=== PATIENT | female | born 1970 | race Caucasian/White ===

== ENCOUNTER → 2017-06-05 | Outpatient (CLI) | payer OTHER ==
[2017-06-05 10:15] LABS: BASO # 0.1 x10^3/uL (0.0-0.2); BASO % 1 % (0-3); EOS % 2 % (0-3); HEMATOCRIT 42.4 % (36.0-47.0); HEMOGLOBIN 14.3 g/dL (12.0-15.5); LYMPH % 25 % (24-48); MEAN CORPUSCULAR HEMOGLOBIN 32 pg (25-35); MEAN CORPUSCULAR HGB CONC 34 g/dL (31-37); MEAN CORPUSCULAR VOLUME 93 fL (79-100); MONO % 7 % (0-9); NEUT % 66 % (31-73); PLATELET COUNT 273 x10^3/uL (140-400); RED BLOOD COUNT 4.55 x10^6/uL (3.50-5.40); RED CELL DISTRIBUTION WIDTH 12.9 % (11.5-14.5); WHITE BLOOD COUNT 8.3 x10^3/uL (4.0-11.0)
[2017-06-05 10:17] LABS: BILIRUBIN,URINE NEGATIVE (NEG); GLUCOSE,URINE NEGATIVE (NEG); NITRITE,URINE NEGATIVE (NEG); PH,URINE 6.5; PROTEIN,URINE NEGATIVE (NEG-TRACE); UROBILINOGEN,URINE 0.2 mg/dL (0.2 mg/dL)
[2017-06-05 10:23] LABS: SQUAMOUS EPITHELIAL CELL,UR MOD /LPF
[2017-06-05 10:24] LABS: BACTERIA,URINE FEW /HPF (0-FEW)
[2017-06-05 10:37] LABS: ALBUMIN 3.8 g/dL (3.4-5.0); CALCIUM 9.3 mg/dL (8.5-10.1); CREATININE 0.7 mg/dL (0.6-1.0); GFR 90.5; POTASSIUM 4.6 mmol/L (3.5-5.1); TOTAL BILIRUBIN 0.5 mg/dL (0.2-1.0); TOTAL PROTEIN 7.5 g/dL (6.4-8.2)
[2017-06-05 10:39] LABS: CHOLESTEROL/HDL RATIO 3.8
[2017-06-05 19:15] LABS: FSH 2.1 mIU/mL (.); LUTEINIZING HORMONE 4.3 mIU/mL (.)
== END | disposition home or self-care (01) ==
LOC: LAB 09:46
PROVIDERS: ATTEND Family Medicine
DX: Z00.01 Encounter for general adult medical examination with abnormal findings (principal); N95.1 Menopausal and female climacteric states
CPT/HCPCS: 36415; 80053; 80061; 81001; 83001; 83002; 84443; 85025

== ENCOUNTER → 2018-11-21 | Outpatient (CLI) | payer OTHER ==
[2018-11-21 08:29] LABS: BASO # 0.1 x10^3/uL (0.0-0.2); BASO % 1 % (0-3); EOS # 0.1 x10^3/uL (0.0-0.7); EOS % 2 % (0-3); HEMATOCRIT 40.1 % (36.0-47.0); HEMOGLOBIN 13.6 g/dL (12.0-15.5); LYMPH # 1.4 x10^3/uL (1.0-4.8); LYMPH % 21 % (24-48); MEAN CORPUSCULAR HEMOGLOBIN 32 pg (25-35); MEAN CORPUSCULAR HGB CONC 34 g/dL (31-37); MEAN CORPUSCULAR VOLUME 93 fL (79-100); MONO # 0.5 x10^3/uL (0.0-1.1); MONO % 7 % (0-9); NEUT # 4.8 x10^3uL (1.8-7.7); NEUT % 70 % (31-73); PLATELET COUNT 298 x10^3/uL (140-400); RED BLOOD COUNT 4.29 x10^6/uL (3.50-5.40); RED CELL DISTRIBUTION WIDTH 13.2 % (11.5-14.5); WHITE BLOOD COUNT 6.9 x10^3/uL (4.0-11.0)
[2018-11-21 08:30] LABS: BILIRUBIN,URINE NEGATIVE (NEG); CLARITY,URINE CLEAR; COLOR,URINE YELLOW; NITRITE,URINE NEGATIVE (NEG); PH,URINE 6.5; PROTEIN,URINE NEGATIVE (NEG-TRACE); UROBILINOGEN,URINE 0.2 mg/dL (0.2 mg/dL)
[2018-11-21 08:37] LABS: SQUAMOUS EPITHELIAL CELL,UR MOD /LPF
[2018-11-21 08:38] LABS: BACTERIA,URINE FEW /HPF (0-FEW)
[2018-11-21 08:57] LABS: ALBUMIN 3.9 g/dL (3.4-5.0); ALBUMIN/GLOBULIN RATIO 1.2 (1.0-1.7); CALCIUM 9.1 mg/dL (8.5-10.1); CREATININE 0.8 mg/dL (0.6-1.0); GFR 77.2; POTASSIUM 3.8 mmol/L (3.5-5.1); TOTAL BILIRUBIN 0.6 mg/dL (0.2-1.0); TOTAL PROTEIN 7.2 g/dL (6.4-8.2)
[2018-11-21 08:58] LABS: CHOLESTEROL/HDL RATIO 4.1
--- NOTE | 2018-11-21 14:04 | RAD ---
DATE: 11/21/2018 EXAM: DIGITAL SCREEN BILAT W/CAD HISTORY: Routine screening COMPARISON: 06/10/2017 This study was interpreted with the benefit of Computerized Aided Detection (CAD). Breast Density: DENSE The breast parenchyma is dense, which could reduce the sensitivity of mammography. Breast parenchyma level density D. FINDINGS: No new or enlarging breast densities are seen. No spiculated mass or architectural distortion is evident. Minimal benign type calcification is present. No suspicious microcalcifications are evident. IMPRESSION: There is no mammographic evidence of malignancy in either breast. BI-RADS CATEGORY: 2 BENIGN FINDING(S) RECOMMENDED FOLLOW-UP: 12M 12 MONTH FOLLOW-UP PQRS compliance statement: Patient information was entered into a reminder system with a target due date for the next mammogram. Mammography is a sensitive method for finding small breast cancers, but it does not detect them all and is not a substitute for careful clinical examination. A negative mammogram does not negate a clinically suspicious finding and should not result in delay in biopsying a clinically suspicious abnormality. "Our facility is accredited by the [employer] Mammography [employer]."
== END | disposition home or self-care (01) ==
LOC: LAB 07:48
PROVIDERS: ATTEND Family Medicine
DX: Z12.31 Encounter for screening mammogram for malignant neoplasm of breast (principal); Z00.00 Encounter for general adult medical examination without abnormal findings; R92.8 Other abnormal and inconclusive findings on diagnostic imaging of breast
CPT/HCPCS: 36415; 77067; 80053; 80061; 81001; 84443; 85025; 87086

== ENCOUNTER → 2019-05-30 | Outpatient (CLI) | payer OTHER ==
--- NOTE | 2019-06-03 08:07 | PATHOLOGY ---
[facility] Accession Number: [id number] . 01 Material submitted: . nail - RIGHT HALLUX NAIL. Modifiers: right, great . 01 Clinical history: . Onychomycosis . 02 Diagnosis: Right hallux nail: - Onychomycosis. (JPM:[facility] 06/02/2019) [facility] 06/02/2019 1353 Local . 02 Comment: A properly controlled PAS stain for yeast/fungi is obtained on the right hallux nail. There are hyphae and spores present supportive of the diagnosis of onychomycosis. (JPM:[facility] 06/02/2019) . Special stain performed: PAS stain for yeast/fungi . 02 Electronically signed: . Vinod Davis MD, Pathologist NPI- [id number] . 01 Gross description: . The specimen is received fresh, labeled "Bebe, Silke, right hallux nail", consist of a semi-lunar hernandez-white firm a peritoneal measuring 1.9 x 0.3 x 0.1 cm. The specimen is entirely submitted in A1 after ELÍAS exposure. ([facility]; 05/30/2019) [facility] 05/30/20198 Local . 02 Pathologist provided ICD-10: B35.1 . 02 CPT . 552203, [id number] Specimen Comment: A courtesy copy of this report has been sent to [phone] Specimen Comment: [phone] Specimen Comment: Report sent to / DR RUFFIN Performed at: 01 [facility] [address], [place], [place] [id number] MD Josh Conley MD Phone: [phone] Performed at: 02 [facility] [address] [place], [place] [id number] MD Vinod Davis MD Phone: [phone]
== END | disposition home or self-care (01) ==
LOC: SPEC 12:14
PROVIDERS: ATTEND Podiatrist Foot & Ankle Surgery
DX: B35.1 Tinea unguium (principal); Z76.89 Persons encountering health services in other specified circumstances
CPT/HCPCS: 87102; 88304; 88312

== ENCOUNTER → 2019-06-27 | Day surgery (SDC) | payer OTHER ==
[~2019-06-27] MED LIST: LIDOCAINE 1%/EPI 1:100,000 20 ML VIAL. INJ ONE; LIDOCAINE 1%/EPI 1:100,000 20 ML VIAL. ONE
--- NOTE | 2019-06-27 12:22 | PDOC4 ---
Operative Note Operative Note Date: 06/27/2019 Preoperative diagnosis: Sebaceous cyst mid back Postoperative diagnosis: Same Surgeon: Damien Procedure: Excision of mass Specimen: Back mass Dictation: Patient is 49-year-old female is complained of enlarging mass on her mid back was inflamed and infected she has been on antibiotics requesting excision of the area. Procedure of excision was explained to the patient detail risk benefits were also discussed including bleeding infection alternatives to this procedure also discussed with patient who seemed to understand gave both verbal and written consent to have the procedure performed. Patient was placed in the prone position and the miners room mid back was prepped and draped usual sterile fashion using ChloraPrep and area around the mass was injected with 1% lidocaine with epinephrine elliptical incision was made with 15 blade scalpel was fully excised and sent for pathology the wound was closed in a single layer running 40 septic and a Monocryl Mastisol Steri-Strips and Telfa dressing were applied. Patient toward procedure well was charged home in stable condition all sponge instrument needle counts listed as correct estimate blood loss less than 5 mL WYATT RODGERS MD Jun 27, 2019 12:22
--- NOTE | 2019-07-01 09:07 | PATHOLOGY ---
[facility] Accession Number: [id number] . 01 Material submitted: . back - SEBACEOUS CYST MID BACK. Modifiers: mid . 01 Clinical history: . Sebaceous cyst . 02 Diagnosis: Skin and subcutaneous tissue, mid back lesion excision: - Abscess containing keratinaceous material and showing chronic inflammation, focal foreign body giant cell reaction, and surrounding fibrosis, consistent with ruptured epidermal inclusion cyst. (JPM:[facility]; 06/30/2019) [facility] 06/30/2019 1545 Local . 02 Comment: There is no evidence of malignancy. (JPM:[facility]; 06/30/2019) . 02 Electronically signed: . Vinod Davis MD, Pathologist NPI- [id number] . 01 Gross description: . Received in formalin labeled "Bebe, Silke, sebaceous cyst, mid-back," is an unoriented ellipse of light roberts skin measuring 2.3 x 0.7 cm with underlying subcutaneous tissue excised to a depth of up to 1.2 cm. The resection margins are inked black. The skin surface displays a lesion that is poorly circumscribed, raised, irregular in contour, roberts, measures approximately 0.9 x 0.7 cm, and abuts the closest peripheral margin. The specimen is serially sectioned into 9 pieces and entirely submitted in cassettes A1-A3 with tips in A3. ([facility]; 06/27/2019) TOB/TOB 06/27/2019 2259 Local . 02 Pathologist provided ICD-10: L72.0 . 02 CPT . 970069 Specimen Comment: A courtesy copy of this report has been sent to [phone] Specimen Comment: [phone] Specimen Comment: Report sent to and Performed at: 01 [facility] [address], [place] [id number] MD Josh Conley MD Phone: [phone] Performed at: 02 [facility] [address] [place], [place] [id number] MD Vinod Davis MD Phone: [phone]
== END ==
LOC: SURG 11:30
PROVIDERS: ATTEND Surgery
DX: L72.3 Sebaceous cyst (principal); L90.5 Scar conditions and fibrosis of skin; L02.212 Cutaneous abscess of back [any part, except buttock and flank]
CPT/HCPCS: 11403; 88304; J3490

== ENCOUNTER 2019-07-31 06:39 | Day surgery (SDC) | payer OTHER ==
[~2019-07-31] VITALS: Ht 154.9 cm; Wt 68.0 kg
[2019-07-31] MEDS ORDERED: ONDANSETRON PF 4 MG/2 ML VIAL. IV PRN (07:00)
[2019-07-31] MEDS ORDERED: PROCHLORPERAZINE 10 MG/2 ML VIAL. IV PRN (07:00)
[2019-07-31] MEDS ORDERED: MORPHINE SULFATE 2 MG/ML VIAL. IV PRN (07:00)
[2019-07-31] MEDS ORDERED: fentaNYL PF VIAL 100 MCG/2 ML VIAL IV PRN ×2 (07:00)
[2019-07-31] MEDS ORDERED: SCOPOLAMINE 1.5MG PATCH. TD ONE (07:00)
[2019-07-31] MEDS ORDERED: IV RINGERS,LACTATED 1000ML 1,000 ML IV SCH (07:00)
[2019-07-31] MEDS ORDERED: HYDROmorphone 2 MG/ML VIAL IV PRN (07:00)
[2019-07-31] MEDS ORDERED: CETI10TA24 PO (07:12)
[2019-07-31] MEDS ORDERED: CYAN100070 PO (07:12)
[2019-07-31] MEDS ORDERED: LEVO75TA5 PO (07:12)
[2019-07-31] MEDS ORDERED: GUAI12003 PO (07:12)
[2019-07-31] MEDS ORDERED: FLUT9.9S NS (07:12)
[2019-07-31] MEDS ORDERED: CLINDAMYCIN 900MG PREMIX 50 ML IV PRN (07:30)
[2019-07-31] MEDS ORDERED: PROPOFOL 20 ML IV ONE (08:02)
[2019-07-31] MEDS ORDERED: KETAMINE HCL IN NACL, ISO-OSM 50 MG/5 ML SYRINGE ONE (08:02)
[2019-07-31] MEDS ORDERED: MIDAZOLAM HCL/PF 2 MG/2 ML VIAL. ONE (08:02)
[2019-07-31] MEDS ORDERED: ONDANSETRON PF 4 MG/2 ML VIAL. ONE (08:03)
[2019-07-31] MEDS ORDERED: FAMOTIDINE 20 MG/2 ML VIAL ONE (08:03)
[2019-07-31] MEDS ORDERED: KETOROLAC 30 MG/ML VIAL. ONE (08:03)
[2019-07-31] MEDS ORDERED: DEXAMETHASONE SOD PHOS 4 MG/ML VIAL ONE ×2 (08:03)
[2019-07-31] MEDS ORDERED: LIDOCAINE 2% PF 5 ML VIAL. ONE (08:03)
[2019-07-31] MEDS ORDERED: diphenhydrAMINE 50 MG/ML VIAL ONE (08:03)
[2019-07-31] MEDS ORDERED: PROPOFOL 100 ML IV ONE (08:04)
--- NOTE | 2019-07-31 09:05 | PDOC ---
BRIEF OPERATIVE NOTE Date: Jul 31, 2019 Pre-Op Diagnosis AUB Post-Op Diagnosis Same Procedure Performed Op [facility] Surgeon Dr. Wyman Anesthesia Type: General Blood Loss 5 ml Specimens Obtained endometrial biopsy Findings heterogenous endometrial cavity Complications none Operative Note see dictation MIGUELINA WYMAN Jr, MD Jul 31, 2019 09:05
--- NOTE | 2019-07-31 09:07 | DISCH ---
DISCHARGE INSTRUCTIONS Condition on Discharge Condition on Discharge: Stable Activity After Discharge Activity Instructions for Disc: Activity as tolerated Lifting Instructions after Dis: No heavy lifting Driving Instructions after Dis: Do not drive today Diet after Discharge Diet after Discharge: Regular Contacting the DRJacky after DC Call your doctor for: Concerns you may have Follow-Up Follow up with: Dr. Wyman in 1 week MIGUELINA WYMAN Jr, MD Jul 31, 2019 09:07
[2019-07-31] MEDS ORDERED: IBUP200T44 PO (09:22)
--- NOTE | 2019-07-31 09:27 | OP ---
DATE OF SURGERY: PREOPERATIVE DIAGNOSIS: Abnormal uterine bleeding. POSTOPERATIVE DIAGNOSIS: Abnormal uterine bleeding. PROCEDURE: Operative hysteroscopy. SURGEON: Froylan Wyman MD. ANESTHESIA: GETA. ESTIMATED BLOOD LOSS: Less than 5 mL. COMPLICATIONS: None. FINDINGS: Heterogeneous endometrial cavity. SUMMARY: A 49-year-old 2, para 2 with abnormal uterine bleeding. She also had endometrial cells on Pap smear. The patient was counseled on risks, benefits and expectations of operative hysteroscopy and voiced clear understanding to proceed. DESCRIPTION OF PROCEDURE: The patient was taken to surgery suite and placed in dorsal lithotomy position. She was prepped with Betadine and draped in sterile fashion. After adequate anesthesia, weighted speculum and curved Thelma placed vaginally. Anterior lip of the cervix grasped with single tooth tenaculum. The weighted speculum and curved Austin were then removed. Cervix was dilated with Hegar dilators up to size 7. The TruClear hysteroscope was positioned. There was heterogeneous endometrial cavity in which the TruClear device was utilized to excise endometrial biopsy portions until the endometrial canal was homogenous. The hysteroscope was removed. Single tooth tenaculum was removed. The patient tolerated the procedure well and was taken to recovery room in stable condition. Sponge and needle count correct x 3. FROYLAN WYMAN MD DR: JULIA/nts JOB#: [id number] / [id number]
[2019-07-31] MEDS ORDERED: IBUPROFEN 400 MG TABLET. PO ONE (09:30)
[2019-07-31] MEDS ORDERED: IBUPROFEN 200 MG TABLET. PO ONE (09:34)
[2019-07-31 10:05] VITALS: BP 139/67
--- NOTE | 2019-08-01 12:06 | PATHOLOGY ---
[facility] Accession Number: [id number] . 01 Material submitted: . endometrium - ENDOMETRIAL BIOPSY . 01 Clinical history: . Abnormal uterine bleeding . 02 Diagnosis: Endometrial biopsy: - Slightly disordered proliferative endometrium. ([facility] 08/01/2019) [facility] 08/01/2019 0927 Local . 02 Comment: There is no evidence of hyperplasia or malignancy. ([facility] 08/01/2019) . 02 Electronically signed: . Vinod Davis MD, Pathologist NPI- [id number] . 01 Gross description: . Received in formalin labeled "Bebe, Silke, endometrial biopsy," is blood-tinged mucoid material containing small fragments of roberts membranous tissue, measuring 1.4 x 0.3 x 0.1 cm in aggregate dimensions. The specimen is filtered and submitted entirely in cassette A1. ([facility]; 07/31/2019) TOB/TOB 07/31/2019 1733 Local . 02 Pathologist provided ICD-10: N85.9 . 02 CPT . 160332 Specimen Comment: A courtesy copy of this report has been sent to [phone] Specimen Comment: [phone] Specimen Comment: Report sent to / DR RUFFIN Performed at: 01 [facility] [address], [place], [place] [id number] MD Josh Conley MD Phone: [phone] Performed at: 02 [facility] [address] [place], [place] [id number] MD Vinod Davis MD Phone: [phone]
== END 2019-07-31 10:40 | disposition home or self-care (01) ==
LOC: SURG 06:39
PROVIDERS: ATTEND Obstetrics & Gynecology
DX: N93.8 Other specified abnormal uterine and vaginal bleeding (principal); E03.9 Hypothyroidism, unspecified; Z98.890 Other specified postprocedural states; Z79.899 Other long term (current) drug therapy; Z88.0 Allergy status to penicillin; Z88.1 Allergy status to other antibiotic agents; Z88.8 Allergy status to other drugs, medicaments and biological substances; Z90.49 Acquired absence of other specified parts of digestive tract
CPT/HCPCS: 81025; 88305; A7015; J1100; J1200; J1885; J1956; J2001; J2250; J2405; J2704; J3010; J3490

== ENCOUNTER → 2019-12-16 | Outpatient (CLI) | payer OTHER ==
[~2019-12-16] MED LIST changes: +CETI10TA24 PO; +CYAN100070 PO; +FLUT9.9S NS; +GUAI12003 PO; +IBUP200T44 PO; +LEVO75TA5 PO; -LIDOCAINE 1%/EPI 1:100,000 20 ML VIAL. INJ ONE; -LIDOCAINE 1%/EPI 1:100,000 20 ML VIAL. ONE
[2019-12-16 08:52] LABS: BASO # 0.1 x10^3/uL (0.0-0.2); BASO % 1 % (0-3); EOS # 0.2 x10^3/uL (0.0-0.7); EOS % 3 % (0-3); HEMATOCRIT 39.5 % (36.0-47.0); HEMOGLOBIN 13.8 g/dL (12.0-15.5); LYMPH # 1.5 x10^3/uL (1.0-4.8); LYMPH % 22 % (24-48); MEAN CORPUSCULAR HEMOGLOBIN 32 pg (25-35); MEAN CORPUSCULAR HGB CONC 35 g/dL (31-37); MEAN CORPUSCULAR VOLUME 93 fL (79-100); MONO # 0.5 x10^3/uL (0.0-1.1); MONO % 7 % (0-9); NEUT # 4.5 x10^3/uL (1.8-7.7); NEUT % 67 % (31-73); PLATELET COUNT 290 x10^3/uL (140-400); RED BLOOD COUNT 4.25 x10^6/uL (3.50-5.40); RED CELL DISTRIBUTION WIDTH 12.9 % (11.5-14.5); WHITE BLOOD COUNT 6.7 x10^3/uL (4.0-11.0)
[2019-12-16 09:22] LABS: ALBUMIN 3.9 g/dL (3.4-5.0); ALBUMIN/GLOBULIN RATIO 1.4 (1.0-1.7); CHOLESTEROL/HDL RATIO 4.2; CREATININE 0.7 mg/dL (0.6-1.0); GFR 89.7; POTASSIUM 4.2 mmol/L (3.5-5.1); TOTAL BILIRUBIN 0.4 mg/dL (0.2-1.0); TOTAL PROTEIN 6.7 g/dL (6.4-8.2)
[2019-12-17 00:07] LABS: HEMOGLOBIN A1C 5.3 % (4.8-5.6)
== END | disposition home or self-care (01) ==
LOC: LAB 07:59
PROVIDERS: ATTEND Internal Medicine
DX: Z83.438 Family history of other disorder of lipoprotein metabolism and other lipidemia (principal)
CPT/HCPCS: 36415; 80053; 80061; 83036; 84443; 85025

== ENCOUNTER → 2020-05-13 | Outpatient (CLI) | payer OTHER ==
[~2020-05-13] MED LIST changes: -CETI10TA24 PO; +CETI10TA74 PO
== END ==
LOC: LAB 11:38
PROVIDERS: ATTEND Nurse Practitioner Family
DX: L65.9 Nonscarring hair loss, unspecified (principal)
CPT/HCPCS: 36415; 82306; 84443

== ENCOUNTER → 2020-11-29 | Outpatient (CLI) | payer OTHER ==
[2020-11-29 08:39] LABS: CHOLESTEROL/HDL RATIO 4.1
== END ==
LOC: LAB 07:45
PROVIDERS: ATTEND Internal Medicine
DX: E55.9 Vitamin D deficiency, unspecified (principal); E03.9 Hypothyroidism, unspecified; L65.9 Nonscarring hair loss, unspecified
CPT/HCPCS: 36415; 80061; 82306; 82728; 83540; 83550; 84443; 86376

== ENCOUNTER → 2021-06-01 | Outpatient (CLI) | payer OTHER ==
--- NOTE | 2021-06-01 15:21 | KCIC ---
Bilateral digital screening mammograms with 3-D tomosynthesis: Reason for examination: Routine screening. Comparison is made to previous studies dated back to 04/05/2016. Bilateral mammograms in CC and oblique projections were obtained with 2-D imaging and 3-D tomosynthes is imaging on a Siemens Inspiration unit and reviewed on the workstation. Interpretation was made arie brown the benefit of CAD. The skin and nipples show no abnormalities. No abnormal axillary lymph nodes are seen. The breast par enchyma is extremely dense. (Breast density: Category D.) There are areas of nodular asymmetry presen t bilaterally which may represent underlying cysts. Further evaluation with ultrasound is recommended . There are no suspicious calcifications seen. Impression: Areas of nodular asymmetry seen bilaterally. These may represent underlying cysts. Recommend further evaluation with ultrasound. Your patient's mammogram demonstrates that she has dense breast tissue (breast density category C or D), which could hide abnormalities, and if she has other risk factors for breast cancer that have bee n identified, she might benefit from supplemental screening tests that may be suggested by you as her ordering physician. Dense breast tissue, in and of itself, is a relatively common condition. Therefo re, this information is not provided to cause undue concern, but rather to raise your awareness and t o promote discussion with your patient regarding the presence of other risk factors, in addition to d ense breast tissue. Your patient's mammography results will be sent to her. BI-RAD Category 0: Incomplete. Needs additional imaging evaluation. "Our facility is accredited by the [employer] Mamm[employer]." This patient's information has been entered into a reminder system for the patient to be notified arie brown the results of her examination and a target date for the next mammogram. Electronically signed by: Sandra Nolasco MD (06/01/2021 3:19 PM) [id number]
== END ==
LOC: KCIC MAMMO 14:25
PROVIDERS: ATTEND Internal Medicine
DX: Z12.31 Encounter for screening mammogram for malignant neoplasm of breast (principal)
CPT/HCPCS: 77063; 77067

== ENCOUNTER → 2021-06-01 | Outpatient (CLI) | payer OTHER ==
[2021-06-01 10:42] LABS: BASO # 0.1 x10^3/uL (0.0-0.2); BASO % 1 % (0-3); EOS # 0.1 x10^3/uL (0.0-0.7); EOS % 1 % (0-3); HEMATOCRIT 39.9 % (36.0-47.0); HEMOGLOBIN 13.6 g/dL (12.0-15.5); LYMPH # 1.5 x10^3/uL (1.0-4.8); LYMPH % 19 % (24-48); MEAN CORPUSCULAR HEMOGLOBIN 33 pg (25-35); MEAN CORPUSCULAR HGB CONC 34 g/dL (31-37); MEAN CORPUSCULAR VOLUME 96 fL (79-100); MONO # 0.6 x10^3/uL (0.0-1.1); MONO % 7 % (0-9); NEUT # 5.8 x10^3/uL (1.8-7.7); NEUT % 72 % (31-73); PLATELET COUNT 268 x10^3/uL (140-400); RED BLOOD COUNT 4.17 x10^6/uL (3.50-5.40); RED CELL DISTRIBUTION WIDTH 12.9 % (11.5-14.5); WHITE BLOOD COUNT 8.1 x10^3/uL (4.0-11.0)
[2021-06-01 10:59] LABS: CHOLESTEROL/HDL RATIO 3.4
[2021-06-01 23:14] LABS: FSH 3.9 mIU/mL (.); TESTOSTERONE TOTAL 26 ng/dL (4-50)
== END ==
LOC: LAB 09:54
PROVIDERS: ATTEND Obstetrics & Gynecology
DX: Z01.419 Encounter for gynecological examination (general) (routine) without abnormal findings (principal); R61 Generalized hyperhidrosis; E03.9 Hypothyroidism, unspecified; E78.5 Hyperlipidemia, unspecified
CPT/HCPCS: 36415; 80061; 82670; 82681; 83001; 84144; 84403; 85025

== ENCOUNTER → 2021-06-07 | Outpatient (CLI) | payer OTHER ==
--- NOTE | 2021-06-07 09:01 | RAD ---
EXAM: Bilateral breast sonogram. HISTORY: 51-year-old female presents for evaluation of nodularity within both breasts demonstrated on a screening mammogram dated 06/01/2021. TECHNIQUE: Sonographic imaging of both breasts including all 4 quadrants of the rectal regions was pe rformed. COMPARISON: 06/01/2021. FINDINGS: There is no suspicious sonographic finding within either breast. There is extremely dense b reast parenchyma. There is no suspicious axillary lymph node. IMPRESSION: 1. No suspicious sonographic finding. Extremely dense breast parenchyma. The absence of a sonographic correlate for mammographic nodularity favors benignity. 2. BI-RADS Category 3: Probably benign finding(s). Precautionary short-term follow-up with a bilatera l diagnostic mammogram in 6 months is recommended to confirm mammographic stability. Electronically signed by: Davida Rosario MD (06/07/2021 8:59 AM) [id number]
== END ==
LOC: US 08:26
PROVIDERS: ATTEND Obstetrics & Gynecology
DX: R92.8 Other abnormal and inconclusive findings on diagnostic imaging of breast (principal)
CPT/HCPCS: 76641-50

== ENCOUNTER → 2021-09-21 | Outpatient (CLI) | payer OTHER | LOC: LAB 09-20 14:59 | PROVIDERS: ATTEND Internal Medicine Pulmonary Disease | DX: Z20.822 Contact with and (suspected) exposure to COVID-19 (principal) | CPT/HCPCS: U0003 ==

== ENCOUNTER → 2021-12-01 | Outpatient (CLI) | payer OTHER ==
[2021-12-01 08:28] LABS: BASO # 0.1 x10^3/uL (0.0-0.2); BASO % 1 % (0-3); EOS # 0.1 x10^3/uL (0.0-0.7); EOS % 2 % (0-3); HEMATOCRIT 40.7 % (36.0-47.0); HEMOGLOBIN 13.8 g/dL (12.0-15.5); LYMPH # 1.5 x10^3/uL (1.0-4.8); LYMPH % 23 % (24-48); MEAN CORPUSCULAR HEMOGLOBIN 32 pg (25-35); MEAN CORPUSCULAR HGB CONC 34 g/dL (31-37); MEAN CORPUSCULAR VOLUME 95 fL (79-100); MONO # 0.5 x10^3/uL (0.0-1.1); MONO % 8 % (0-9); NEUT # 4.2 x10^3/uL (1.8-7.7); NEUT % 66 % (31-73); PLATELET COUNT 284 x10^3/uL (140-400); RED BLOOD COUNT 4.27 x10^6/uL (3.50-5.40); WHITE BLOOD COUNT 6.5 x10^3/uL (4.0-11.0)
[2021-12-01 09:01] LABS: ALBUMIN 3.9 g/dL (3.4-5.0); ALBUMIN/GLOBULIN RATIO 1.1 (1.0-1.7); CALCIUM 8.9 mg/dL (8.5-10.1); CREATININE 0.8 mg/dL (0.6-1.0); GFR 76.2; TOTAL BILIRUBIN 0.6 mg/dL (0.2-1.0); TOTAL PROTEIN 7.5 g/dL (6.4-8.2)
[2021-12-01 09:02] LABS: CHOLESTEROL/HDL RATIO 3.5
== END ==
LOC: LAB 07:55
PROVIDERS: ATTEND Internal Medicine
DX: E03.9 Hypothyroidism, unspecified (principal); E55.9 Vitamin D deficiency, unspecified; L65.8 Other specified nonscarring hair loss; Z83.438 Family history of other disorder of lipoprotein metabolism and other lipidemia
CPT/HCPCS: 36415; 80053; 80061; 82306; 82728; 84443; 85025